=== PATIENT | male | born 1960 | race Caucasian/White ===

== ENCOUNTER 2017-04-22 02:35 | Emergency (ER) | payer OTHER ==
[2017-04-22 02:42] VITALS: O2SAT 98
[2017-04-22] MEDS ORDERED: APAP/HYDROCODONE 325/5 TAB ONE (02:55)
[2017-04-22] MEDS ORDERED: APAP/HYDROCODONE 325/5 TAB PO ONE (02:57)
[2017-04-22] MEDS ORDERED: AMOXICILLIN(FRIDGE) 125/5 ML BOTTLE ONE (03:00)
[2017-04-22] MEDS ORDERED: LIDOCAINE HCL 2% (VISCOUS) 20 ML SOL ONE (03:01)
[2017-04-22 03:05] VITALS: BP 152/97; PULSE 70; RESP 24; TEMP 96.3
[2017-04-22] MEDS ORDERED: AMOXICILLIN 125/5 ML BOTTLE PO ONE (03:05)
[2017-04-22] MEDS ORDERED: LIDOCAINE HCL 2% (VISCOUS) 20 ML SOL MT ONE (03:05)
== END 2017-04-22 03:10 | disposition home or self-care (01) | DRG 159 ==
LOC: ED 02:35
DX: K02.9 Dental caries, unspecified (principal)
CPT/HCPCS: 99282; 99283